=== PATIENT | female | born 1945 | race Caucasian/White ===

== ENCOUNTER 2022-06-29 12:15 | Emergency (ER) | payer MEDICARE, BC ==
[~2022-06-29] VITALS: Ht 175.3 cm; Wt 80.0 kg
[2022-06-29 12:22] VITALS: BP 122/77
[2022-06-29 13:58] LABS: HEMATOCRIT. 49.4 % (36.0-48.0); HEMOGLOBIN. 16.4 g/dL (12.0-16.0); MEAN CORPUSCULAR HEMOGLOBIN 29.1 pg (28.0-32.0); MEAN CORPUSCULAR VOLUME 87.5 fL (81.0-99.0); MEAN PLATELET VOLUME 7.6 fl (7.4-10.4); PLATELET 164 x1000/uL (130-400); RED BLOOD CELL COUNT 5.64 mill/uL (4.2-5.4)
[2022-06-29 14:04] LABS: CHLORIDE 104 mEq/L (98-107)
[2022-06-29 14:35] LABS: CLARITY URINE CLEAR (CLEAR); COLOR URINE YELLOW (YELLOW); KETONES URINE NEGATIVE (NEGATIVE); LEUKOCYTE ESTERASE URINE NEGATIVE (NEGATIVE); NITRITE URINE NEGATIVE (NEGATIVE); OCCULT BLOOD URINE NEGATIVE (NEGATIVE); PROTEIN URINE NEGATIVE (NEGATIVE); SPECIFIC GRAVITY URINE 1.014 (1.005-1.030); UROBILINOGEN URINE 0.2 E.U./dL (0.2-1.0)
[2022-06-29 15:15] LABS: PLATELET ESTIMATE NORMAL
== END 2022-06-29 16:43 | disposition home or self-care (01) ==
LOC: ER 12:21
DX: R10.84 Generalized abdominal pain (principal); R33.9 Retention of urine, unspecified
CPT/HCPCS: 36415; 80053; 81003; 83605; 85025; 99283; A4315